=== PATIENT | female | born 1940 ===

== ENCOUNTER 2017-06-09 11:22 | Observation (INO) | payer MEDICARE, MEDICAID ==
--- NOTE | 2017-06-09 11:56 | C.PDOC ---
History Of Present Illness 77-year-old female, PMHx includes Hypertension and Diabetes, presents to the emergency department accompanied by daughter (acting as historian), with complaints of a syncopal episode in bathroom at home, prior to arrival. Patient is currently complaining of mild nausea. Denies injuries, chest pain, shortness of breath, vomiting, change in mentation, or any other associated symptoms. Time Seen by Provider: 06/09/17 11:50 Chief Complaint (Nursing): Syncope History Per: Patient History/Exam Limitations: no limitations Onset/Duration Of Symptoms: Gradual Current Symptoms Are (Timing): Still Present Past Medical History Reviewed: Historical Data, Nursing Documentation, Vital Signs Vital Signs: Last Vital Signs Temp 98.8 F 06/09/17 11:31 Pulse 83 06/09/17 11:31 Resp 18 06/09/17 11:31 BP 103/59 L 06/09/17 11:31 Pulse Ox 97 06/09/17 14:16 - Medical History PMH: HTN Family History: States: Unknown Family Hx - Social History Hx Alcohol Use: No Hx Substance Use: No - Immunization History Hx Tetanus Toxoid Vaccination: No Hx Influenza Vaccination: No Hx Pneumococcal Vaccination: No Review Of Systems Except As Marked, All Systems Reviewed And Found Negative. Constitutional: Negative for: Fever, Chills Cardiovascular: Positive for: Other (Syncope). Negative for: Chest Pain, Palpitations Respiratory: Negative for: Cough, Shortness of Breath Gastrointestinal: Positive for: Nausea. Negative for: Vomiting Neurological: Negative for: Weakness, Numbness, Headache Psych: Negative for: Suicidal ideation Physical Exam - Physical Exam Appears: Non-toxic, No Acute Distress Skin: Normal Color, Warm, Dry Head: Atraumatic, Normacephalic Eye(s): bilateral: Normal Inspection, PERRL Nose: Normal Oral Mucosa: Moist Lips: Normal Appearing Neck: Normal ROM, Supple Chest: Symmetrical Cardiovascular: Rhythm Regular, No Murmur Respiratory: Normal Breath Sounds, No Accessory Muscle Use, No Rales, No Rhonchi , No Wheezing, Other (Equal breath sounds bilaterally) Gastrointestinal/Abdominal: Soft, No Tenderness Extremity: Normal ROM, No Deformity Neurological/Psych: Oriented x3, Normal Speech, Other (No focal deficit) ED Course And Treatment - Laboratory Results Result Diagrams: 06/09/17 12:36 06/09/17 12:36 ECG: Interpreted By Me, Viewed By Me ECG Rhythm: Sinus Rhythm ECG Interpretation: No Acute Changes Rate From EC O2 Sat by Pulse Oximetry: 97 (RA) Pulse Ox Interpretation: Normal - CT Scan/US CT Head Other Rad Studies (CT/US): Read By Radiologist, Radiology Report Reviewed CT/US Interpretation: Accession No. : [id number]. Patient Name / ID : CARLOTTA GOMES / [id number]. Exam Date : 06/09/2017 12:55:04 ( Approved ). Study Comment : Sex / Age : F / [id number]. Creator : Iam Wheat MD. Dictator : Iam Wheat MD. Home Care Music Therapist : Top Frame Maker : Iam Wheat MD. Approver2 : Report Date : 06/09/2017 13:03:16. My Comment : . PROCEDURE: CT HEAD WITHOUT CONTRAST. HISTORY: dizziness. COMPARISON: None available. TECHNIQUE: Axial computed tomography images were obtained through the head/brain without intravenous contrast. Radiation dose: Total exam DLP = 709 mGy-cm. This CT exam was performed using one or more of the following dose reduction techniques: Automated exposure control, adjustment of the mA and/or kV according to patient size, and/or use of iterative reconstruction technique. FINDINGS: HEMORRHAGE: No intracranial hemorrhage. BRAIN: No mass effect or edema. Scattered focal lucencies in the subcortical and periventricular white matter suggestive for chronic microvascular ischemic change most prominent in the bifrontal regions. . Mild bifrontal extra-axial prominence. VENTRICLES: Unremarkable. No hydrocephalus. CALVARIUM: Unremarkable. PARANASAL SINUSES: Moderate mucosal thickening and opacification of the bilateral maxillary sinuses, sphenoid sinus, and ethmoid air cells. MASTOID AIR CELLS: Unremarkable as visualized. No inflammatory changes. OTHER FINDINGS : None. IMPRESSION: Extensive scattered focal lucencies in the subcortical and periventricular white matter with a somewhat bifrontal predominance which may represent moderate to severe chronic microvascular ischemic change. Additional etiologies not entirely excluded. If symptoms persists, correlation with MRI may be helpful. Mild bifrontal extra-axial prominence. Clinical correlation. Sinus mucosal disease. Medical Decision Making Medical Decision Making: Plan: * CT Head * EKG * BNP, CMP, Trop I * CBC * Chest X-Ray * UA * Reassess and Disposition Reassess Patient will be admitted to hospitalist Travis Brewer, with ICU consult Zahira Brewer. Disposition Discussed With DrGlo: Yrn Loyola Counseled Patient/Family Regarding: Studies Performed, Diagnosis - Disposition Disposition: HOSPITALIZED Disposition Time: 13:46 Condition: FAIR - Clinical Impression Clinical Impression: Syncope, UTI (urinary tract infection), Hyponatremia - Scribe Statement The provider has reviewed the documentation as recorded by the Luiz Toure All medical record entries made by the Lawsonibcarlos enrique were at my direction and personally dictated by me. I have reviewed the chart and agree that the record accurately reflects my personal performance of the history, physical exam, medical decision making, and the department course for this patient. I have also personally directed, reviewed, and agree with the discharge instructions and disposition.
[2017-06-09 12:42] LABS: BASO % 0.5 % (0.0-2.0); EOS % 0.1 % (0.0-4.0); HEMOGLOBIN 13.7 g/dL (11.0-16.0); LYMPH # 1.3 K/uL (1.0-4.3); LYMPH % 18.9 % (20.0-40.0); MEAN CELL VOLUME 94.6 fL (81.0-99.0); MEAN CORPUSCULAR HEMOGLOBIN 31.2 pg (27.0-31.0); MEAN CORPUSCULAR HGB CONC 32.9 g/dL (33.0-37.0); MEAN PLATELET VOLUME 8.6 fL (7.2-11.7); MONO # 0.5 K/uL (0.0-0.8); MONO % 7.1 % (0.0-10.0); NEUT # 4.9 K/uL (1.8-7.0); NEUT % 73.4 % (50.0-75.0); NRBC % 0.1 % (0.0-2.0); RBC 4.39 Mil/uL (3.80-5.20); RED CELL DISTRIBUTION WIDTH 14.8 % (11.5-14.5); WHITE BLOOD COUNT 6.7 K/uL (4.8-10.8)
[2017-06-09 12:49] LABS: SQUAMOUS EPITHIAL 1 /hpf (0-5); URINE BILIRUBIN NEGATIVE (NEGATIVE); URINE BLOOD NEGATIVE (NEGATIVE); URINE CLARITY Hazy (Clear); URINE COLOR Yellow (YELLOW); URINE GLUCOSE (UA) NORMAL (Normal); URINE LEUKOCYTE ESTERASE 1+ Leu/uL (Negative); URINE NITRATE NEGATIVE (NEGATIVE); URINE PROTEIN 2+ mg/dL (NEGATIVE); URINE UROBILINOGEN NORMAL mg/dL (0.2-1.0)
[2017-06-09 12:54] LABS: ALB/GLOB RATIO 1.1 (1.0-2.1); ALBUMIN 3.7 g/dL (3.5-5.0); ALT/SGPT 35 U/L (9-52); AST/SGOT 35 U/L (14-36); BLOOD UREA NITROGEN 15 mg/dL (7-17); CALCIUM 8.9 mg/dl (8.6-10.4); GFR AFRICAN-AMERICAN > 60; GFR NON-AFRICAN AMERICAN > 60
--- NOTE | 2017-06-09 13:04 | CT ---
PROCEDURE: CT HEAD WITHOUT CONTRAST. HISTORY: dizziness COMPARISON: None available. TECHNIQUE: Axial computed tomography images were obtained through the head/brain without intravenous contrast. Radiation dose: Total exam DLP = 709 mGy-cm. This CT exam was performed using one or more of the following dose reduction techniques: Automated exposure control, adjustment of the mA and/or kV according to patient size, and/or use of iterative reconstruction technique. FINDINGS: HEMORRHAGE: No intracranial hemorrhage. BRAIN: No mass effect or edema. Scattered focal lucencies in the subcortical and periventricular white matter suggestive for chronic microvascular ischemic change most prominent in the bifrontal regions. . Mild bifrontal extra-axial prominence. VENTRICLES: Unremarkable. No hydrocephalus. CALVARIUM: Unremarkable. PARANASAL SINUSES: Moderate mucosal thickening and opacification of the bilateral maxillary sinuses, sphenoid sinus, and ethmoid air cells. MASTOID AIR CELLS: Unremarkable as visualized. No inflammatory changes. OTHER FINDINGS: None. IMPRESSION: Extensive scattered focal lucencies in the subcortical and periventricular white matter with a somewhat bifrontal predominance which may represent moderate to severe chronic microvascular ischemic change. Additional etiologies not entirely excluded. If symptoms persists, correlation with MRI may be helpful. Mild bifrontal extra-axial prominence. Clinical correlation. Sinus mucosal disease.
[2017-06-09] MEDS ORDERED: Sodium Chloride 0.9% 1,000 ML IV ONE (13:36)
[2017-06-09] MEDS ORDERED: Tmp-Smz 800 mg-160 mg DS Tab PO STA (13:39)
--- NOTE | 2017-06-09 13:55 | RAD ---
Chest x-ray single frontal view History: Chest pain. Comparison: 06/09/2017 Findings: Mild venous congestion. Patchy increased markings at the left lung base which may represent infiltrate and or atelectasis. Question trace left pleural effusion. Tortuous aorta. Mild cardiomegaly. Degenerative changes in the spine and shoulders. Impression: Mild venous congestion. Patchy increased markings at the left lung base which may represent infiltrate and or atelectasis. Question trace left pleural effusion. Tortuous aorta. Mild cardiomegaly.
[2017-06-09] MEDS ORDERED: Tmp-Smz 800 mg-160 mg DS Tab ONE (14:41)
--- NOTE | 2017-06-09 19:27 | CP.PCM.HP ---
History of Present Illness - History of Present Illness History of Present Illness: 77 years old female with PMHx significant for HTN, Type II DM and Hypothyroidism brought to Hospital after an episode of Syncope. Patient denies, headache, chest pain, shortness of breath or abdominal pain. Present on Admission - Present on Admission Any Indicators Present on Admission: No Past Patient History - Past Social History Smoking Status: Never Smoked - CARDIAC Hx Hypertension: Yes - ENDOCRINE/METABOLIC Hx Diabetes Mellitus Type 2: Yes - PSYCHIATRIC Hx Substance Use: No - SURGICAL HISTORY Hx Eye Surgery: Yes (cataracts - R eye) - ANESTHESIA Hx Anesthesia: No Meds Allergies/Adverse Reactions: Allergies Allergy/AdvReac Type Severity Reaction Status Date / Time No Known Allergies Allergy Unverified 06/09/17 11:51 Physical Exam - Constitutional Appears: Well, No Acute Distress - Head Exam Head Exam: ATRAUMATIC, NORMAL INSPECTION, NORMOCEPHALIC - Eye Exam Eye Exam: EOMI, Normal appearance, PERRL - ENT Exam ENT Exam: Mucous Membranes Moist, Normal Exam - Neck Exam Neck exam: Positive for: Full Rom, Normal Inspection - Respiratory Exam Respiratory Exam: Clear to Auscultation Bilateral, NORMAL BREATHING PATTERN - Cardiovascular Exam Cardiovascular Exam: REGULAR RHYTHM, +S1, +S2 - GI/Abdominal Exam GI & Abdominal Exam: Normal Bowel Sounds, Soft - Extremities Exam Extremities exam: Positive for: full ROM, normal inspection - Back Exam Back exam: FULL ROM, NORMAL INSPECTION - Neurological Exam Neurological exam: Alert, CN II-XII Intact, Normal Gait, Oriented x3, Reflexes Normal - Psychiatric Exam Psychiatric exam: Normal Affect, Normal Mood - Skin Skin Exam: Intact, Normal Color Results - Vital Signs Recent Vital Signs: Last Vital Signs Temp 98.8 F 06/09/17 11:31 Pulse 73 06/09/17 17:25 Resp 14 06/09/17 17:25 BP 116/65 06/09/17 17:25 Pulse Ox 96 06/09/17 17:25 - Labs Result Diagrams: 06/09/17 12:36 06/09/17 12:36 Labs: Laboratory Results - last 24 hr 06/09/17 06/09/17 06/09/17 11:55 12:36 12:36 WBC 6.7 RBC 4.39 Hgb 13.7 Hct 41.5 MCV 94.6 MCH 31.2 H MCHC 32.9 L RDW 14.8 H Plt Count 429 H MPV 8.6 Neut % (Auto) 73.4 Lymph % (Auto) 18.9 L [place] % (Auto) 7.1 Eos % (Auto) 0.1 Baso % (Auto) 0.5 Neut # 4.9 Lymph # 1.3 [place] # 0.5 Eos # 0.0 Baso # 0.0 Sodium Potassium Chloride Carbon Dioxide Anion Gap BUN Creatinine Est GFR ( Amer) Est GFR (Non-Af Amer) POC Glucose (mg/dL) 110 Random Glucose Calcium Total Bilirubin AST ALT Alkaline Phosphatase Troponin I NT-Pro-B Natriuret Pep Total Protein Albumin Globulin Albumin/Globulin Ratio Urine Color Yellow Urine Clarity Hazy Urine pH 7.0 Ur Specific [place] 1.020 Urine Protein 2+ H Urine Glucose (UA) Normal Urine Ketones Negative Urine Blood Negative Urine Nitrate Negative Urine Bilirubin Negative Urine Urobilinogen Normal Ur Leukocyte Esterase 1+ H Urine WBC (Auto) 22 H Urine RBC (Auto) 2 Ur Squamous Epith Cells 1 Hyaline Casts 3-5 H 06/09/17 12:36 WBC RBC Hgb Hct MCV MCH MCHC RDW Plt Count MPV Neut % (Auto) Lymph % (Auto) [place] % (Auto) Eos % (Auto) Baso % (Auto) Neut # Lymph # [place] # Eos # Baso # Sodium 128 L Potassium 4.4 Chloride 97 L Carbon Dioxide 24 Anion Gap 12 BUN 15 Creatinine 0.7 Est GFR ( Amer) > 60 Est GFR (Non-Af Amer) > 60 POC Glucose (mg/dL) Random Glucose 132 H Calcium 8.9 Total Bilirubin 0.4 AST 35 ALT 35 Alkaline Phosphatase 30 L Troponin I < 0.0120 NT-Pro-B Natriuret Pep 99.0 Total Protein 7.1 Albumin 3.7 Globulin 3.4 Albumin/Globulin Ratio 1.1 Urine Color Urine Clarity Urine pH Ur Specific [place] Urine Protein Urine Glucose (UA) Urine Ketones Urine Blood Urine Nitrate Urine Bilirubin Urine Urobilinogen Ur Leukocyte Esterase Urine WBC (Auto) Urine RBC (Auto) Ur Squamous Epith Cells Hyaline Casts Assessment & Plan (1) Syncope Assessment and Plan: Continue IV Fluids. REpeat CXR in AM. Status: Acute Priority: High (2) UTI (urinary tract infection) Assessment and Plan: Blood Cultures. Repeat CBC Diff in AM. Rocephin IV QD. Status: Acute (3) Hyponatremia Assessment and Plan: Repeat BMP in AM. Nephrology evaluation. Status: Acute
[2017-06-10] MEDS: (Novolog) Insulin Aspart, Recombinant 100 u/ml 10 ml vial SC SCH ×4 (07:21→22:44)
[2017-06-10] MEDS ORDERED: Pneumococcal 23-Valent Vaccine IM ONE (10:00)
--- NOTE | 2017-06-10 10:10 | RAD ---
Chest x-ray two views History: Cough. Comparison: 06/02/2017 Findings: Diffuse increased interstitial lung markings. Patchy bibasilar airspace opacities. Small left pleural effusion. Tortuous ectatic aorta. Degenerative changes in the spine and shoulders. Impression: Diffuse increased interstitial lung markings. Patchy bibasilar airspace opacities. Small left pleural effusion.
[2017-06-10] MEDS: Azithromycin 500 MG in Sodium Chloride 0.9% 250 ML IVPB SCH (13:00)
--- NOTE | 2017-06-10 13:11 | CT ---
CT chest History: Abnormal chest x-ray. Comparison: X-ray dated 06/10/2017 Technique: Multiple contiguous axial images were performed through the chest without the use of intravenous contrast. Subsequently, sagittal and coronal reformatted images were obtained. This CT exam was performed using one or more of the following dose reduction techniques: Automated exposure control, adjustment of the mA and/or kV according to patient size, and/or use of iterative reconstruction technique. Findings: Right lung: Mild right basilar atelectasis. Left lung: Curvilinear focal consolidative changes at the lateral aspect of the left lower lobe on series 3, image 70 suggestive for atelectasis and or subtle infiltrate. Mild diffuse bilateral increased interstitial markings. No gross pleural effusion. Trachea thru central airways are patent. No significant axillary adenopathy. Thyroid appears grossly preserved. No significant prevascular or paratracheal lymph nodes. No gross hilar adenopathy. Coronary calcifications noted. Mild prominence of the ascending thoracic aorta measuring 3.1 centimeters. Calcification within the aortic knob. Prominent liver. Small hiatal hernia. Degenerative changes in the spine. Impression: Curvilinear consolidative changes at the left lung base which may represent atelectasis and/or minimal infiltrate. Clinical correlation. Mild diffuse increased interstitial lung markings. Additional findings as above.
--- NOTE | 2017-06-10 14:20 | CP.PCM.CON ---
History of Present Illness - History of Present Illness History of Present Illness: I was asked to see patient by Dr Loyola. Patient is a 77 year old female with PMH HTN, hypercholesterolemia and DM who presents with syncope. The patient felt lighheaded ysterday. She denies chest pain or palpitations. She denies dyspnea on exertion Review of Systems - Constitutional Constitutional: absent: As Per HPI, Anorexia, Chills, Daytime Sleepiness, Excessive Sweating, Fatigue, Fever, Frequent Falls, Headache, Increased Appetite , Lethargy, Malaise, Night Sweats, Snoring, Sleep Apnea, Weight Gain, Weight Loss, Weakness, Other - EENT Eyes: absent: As Per HPI, Blind Spots, Blurred Vision, Change in Vision, Decreased Night Vision, Diplopia, Discharge, Dry Eye, Exophthalmos, Floaters, Irritation, Itchy Eyes, Loss of Peripheral Vision, Pain, Photophobia, Requires Corrective Lenses, Sees Flashes, Spots in Vision, Tunnel Vision, Other Visual Disturbances, Loss of Vision, Other Ears: absent: As Per HPI, Decreased Hearing, Ear Discharge, Ear Pain, Tinnitus, Abnormal Hearing, Disequilibrium, Dizziness, Other Nose/Mouth/Throat: absent: As Per HPI, Epistaxis, Nasal Congestion, Nasal Discharge, Nasal Obstruction, Nasal Trauma, Nose Pain, Post Nasal Drip, Sinus Pain, Sinus Pressure, Bleeding Gums, Change in Voice, Dental Pain, Dry Mouth, Dysphagia, Halitosis, Hoarsness, Lip Swelling, Mouth Lesions, Mouth Pain, Odynophagia, Sore Throat, Throat Swelling, Tongue Swelling, Facial Pain, Neck Pain, Neck Mass, Other - Breasts Breasts: absent: As Per HPI, Change in Shape, Mass, Pain, Nipple Discharge, Nipple Inversion, Skin Changes, Swelling, Other - Cardiovascular Cardiovascular: Syncope - Respiratory Respiratory: absent: As Per HPI, Cough, Dyspnea, Hemoptysis, Dyspnea on Exertion , Wheezing, Snoring, Stridor, Pain on Inspiration, Chest Congestion, Excessive Mucous Production, Change in Mucous Color, Pain with Coughing, Other - Gastrointestinal Gastrointestinal: absent: As Per HPI, Abdominal Pain, Belching, Bloating, Change in Bowel Habits, Change in Stool Character, Coffee Ground Emesis, Constipation, Cramping, Diarrhea, Dyspepsia, Dysphagia, Early Satiety, Excessive Flatus, Fecal Incontinence, Heartburn, Hematemesis, Hematochezia, Loose Stools, Melena, Nausea, Odynophagia, Temesmus, Vomiting, Other - Genitourinary Genitourinary: absent: As Per HPI, Change in Urinary Stream, Difficulty Urinating, Dysuria, Flank Pain, Hematuria, Pyuria, Nocturia, Urinary Incontinence, Urinary Frequency, Urinary Hesitance, Urinary Urgency, Voiding Freq/Small Amts, Freq UTI, Hx Renal/Bladder Calculi, Hx /Renal Surgery, Bladder Distension, Other - Musculoskeletal Musculoskeletal: absent: As Per HPI, Abnormal Gait, Arthralgias, Atrophy, Back Pain, Deformity, Joint Swelling, Limited Range of Motion, Loss of Height, Muscle Cramps, Muscle Weakness, Myalgias, Neck Pain, Numbness, Radiating Pain into Limb, Stiffness, Tingling, Other - Integumentary Integumentary: absent: As Per HPI, Acne, Alopecia, Bleeding Lesions, Change in Hair, Change in Nails, Change in Pigmentation, Changing Lesions, Dry Skin, Erythema, Furuncle, Hirsutism, Lesions, New Lesions, Non-Healing Lesions, Photosensitivity, Pruritus, Rash, Skin Pain, Skin Ulcer, Sores, Striae, Swelling , Unusual Bruising, Wounds, Jaundice, Other - Neurological Neurological: absent: As Per HPI, Abnormal Gait, Abnormal Hearing, Abnormal Movements, Abnormal Speech, Behavioral Changes, Burning Sensations, Confusion, Convulsions, Disequilibrium, Dizziness, Numbness, Focal Weakness, Frequent Falls , Headaches, Lack of Coordination, Loss of Vision, Memory Loss, Paresthesias, Radicular Pain, Restless Legs, Sensory Deficit, Syncope, Tingling, Tremor, Vertigo, Weakness, Other Visual Disturbances, Other - Psychiatric Psychiatric: absent: As Per HPI, Abnormal Sleep Pattern, Anhedonia, Anxiety, Auditory Hallucinations, Behavioral Changes, Change in Appetite, Change in Libido, Confusion, Depression, Difficulty Concentrating, Hallucinations, Homicidal Ideation, Hopelessness, Irritability, Memory Loss, Mood Swings, Panic Attacks, Paranoia, Suicidal Ideation, Visual Hallucinations, Tactile Hallucinations, Other - Endocrine Endocrine: absent: As Per HPI, Change in Body Appearance, Change in Libido, Cold Intolorance, Deepening of Voice, Excessive Sweating, Fatigue, Flushing, Heat Intolorance, Increase in Ring/Shoe/Hat Size, Palpitations, Polydipsia, Polyphagia, Polyuria, Other - Hematologic/Lymphatic Hematologic: absent: As Per HPI, Easy Bleeding, Easy Bruising, Lymphadenopathy, Other Past Patient History - Past Medical History & Family History Past Medical History?: Yes - Past Social History Smoking Status: Never Smoked - CARDIAC Hx Cardiac Disorders: Yes Hx Hypertension: Yes - PULMONARY Hx Respiratory Disorders: No - NEUROLOGICAL Hx Neurological Disorder: No - HEENT Hx HEENT Problems: No - RENAL Hx Chronic Kidney Disease: No - ENDOCRINE/METABOLIC Hx Endocrine Disorders: Yes Hx Diabetes Mellitus Type 2: Yes - HEMATOLOGICAL/ONCOLOGICAL Hx Blood Disorders: No - INTEGUMENTARY Hx Dermatological Problems: No - MUSCULOSKELETAL/RHEUMATOLOGICAL Hx Musculoskeletal Disorders: No Hx Falls: Yes - GASTROINTESTINAL Hx Gastrointestinal Disorders: No - GENITOURINARY/GYNECOLOGICAL Hx Genitourinary Disorders: No - PSYCHIATRIC Hx Psychophysiologic Disorder: No Hx Substance Use: No - SURGICAL HISTORY Hx Surgeries: Yes Hx Eye Surgery: Yes (cataracts - R eye) - ANESTHESIA Hx Anesthesia: No Meds Allergies/Adverse Reactions: Allergies Allergy/AdvReac Type Severity Reaction Status Date / Time No Known Allergies Allergy Unverified 06/09/17 11:51 - Medications Medications: Current Medications Ceftriaxone Sodium 1 gm/ (Sodium Chloride) 100 mls @ 100 mls/hr IVPB DAILY [facility] Last Admin: 06/10/17 10:11 Dose: 100 mls/hr Azithromycin 500 mg/ Sodium (Chloride) 250 mls @ 250 mls/hr IVPB DAILY [facility] Last Admin: 06/10/17 13:00 Dose: 250 mls/hr Insulin Aspart (Novolog) 0 unit SC ACHS [facility] PRN Reason: Protocol Last Admin: 06/10/17 11:52 Dose: Not Given Pneumococcal Polyvalent Vaccine (Pneumovax 23 Vaccine) 0.5 ml IM .ONCE ONE Stop: 06/11/17 10:01 Physical Exam - Constitutional Appears: Non-toxic - Head Exam Head Exam: NORMAL INSPECTION - Eye Exam Eye Exam: Normal appearance - ENT Exam ENT Exam: Mucous Membranes Moist - Neck Exam Neck exam: Positive for: Normal Inspection - Respiratory Exam Respiratory Exam: NORMAL BREATHING PATTERN - Cardiovascular Exam Cardiovascular Exam: REGULAR RHYTHM - GI/Abdominal Exam GI & Abdominal Exam: Normal Bowel Sounds - Rectal Exam Rectal Exam: Deferred - Extremities Exam Extremities exam: Negative for: pedal edema - Back Exam Back exam: NORMAL INSPECTION - Neurological Exam Neurological exam: Alert, Oriented x3 - Psychiatric Exam Psychiatric exam: Normal Affect - Skin Skin Exam: Normal Color Results - Vital Signs Recent Vital Signs: Last Vital Signs Temp 97.9 F 06/10/17 09:09 Pulse 71 06/10/17 10:00 Resp 20 06/10/17 09:09 BP 113/70 06/10/17 09:09 Pulse Ox 95 06/10/17 09:09 - Labs Result Diagrams: 06/09/17 12:36 06/09/17 12:36 Labs: Laboratory Results - last 24 hr 06/10/17 06/10/17 06:47 11:49 POC Glucose (mg/dL) 93 91 - EKG Data EKG Interpreted by: Myself EKG shows normal: Sinus rhythm Assessment & Plan (1) Syncope Assessment and Plan: unclear etiology. recommend continued current management. No evidence of ischemia thus far. will perform echocardiogram in the am. Status: Acute Priority: High
--- NOTE | 2017-06-10 15:49 | CP.PCM.PN ---
Subjective - Date & Time of Evaluation Date of Evaluation: 06/10/17 Time of Evaluation: 15:46 - Subjective Subjective: Patient denies cough or urinary symptoms. Objective - Vital Signs/Intake and Output Vital Signs (last 24 hours): Temp Pulse Resp BP Pulse Ox 97.9 F 71 20 113/70 95 06/10/17 09:09 06/10/17 10:00 06/10/17 09:09 06/10/17 09:09 06/10/17 09:09 Intake and Output: 06/10/17 06/10/17 06:59 18:59 Intake Total 300 Balance 300 - Medications Medications: Current Medications Ceftriaxone Sodium 1 gm/ (Sodium Chloride) 100 mls @ 100 mls/hr IVPB DAILY [facility] Last Admin: 06/10/17 10:11 Dose: 100 mls/hr Azithromycin 500 mg/ Sodium (Chloride) 250 mls @ 250 mls/hr IVPB DAILY [facility] Last Admin: 06/10/17 13:00 Dose: 250 mls/hr Insulin Aspart (Novolog) 0 unit SC ACHS [facility] PRN Reason: Protocol Last Admin: 06/10/17 11:52 Dose: Not Given Levothyroxine Sodium (Synthroid) 50 mcg PO DAILY@0630 [facility] Pneumococcal Polyvalent Vaccine (Pneumovax 23 Vaccine) 0.5 ml IM .ONCE ONE Stop: 06/11/17 10:01 Rosuvastatin Calcium (Crestor) 5 mg PO [facility] - Labs Labs: 06/09/17 12:36 06/09/17 12:36 - Constitutional Appears: Well, Non-toxic - Head Exam Head Exam: ATRAUMATIC, NORMAL INSPECTION, NORMOCEPHALIC - Neck Exam Neck Exam: Full ROM, Normal Inspection - Respiratory Exam Respiratory Exam: Clear to Ausculation Bilateral, NORMAL BREATHING PATTERN - Cardiovascular Exam Cardiovascular Exam: REGULAR RHYTHM, +S1, +S2 - GI/Abdominal Exam GI & Abdominal Exam: Soft, Normal Bowel Sounds - Extremities Exam Extremities Exam: Full ROM, Normal Capillary Refill, Normal Inspection - Back Exam Back Exam: Full ROM, NORMAL INSPECTION - Neurological Exam Neurological Exam: Alert, Awake, CN II-XII Intact, Normal Gait, Oriented x3 - Psychiatric Exam Psychiatric exam: Normal Affect, Normal Mood Assessment and Plan (1) Pneumonia Assessment & Plan: Continue Rocephin + Zithromax IV. Status: Acute (2) Syncope Assessment & Plan: Cardiology evaluation. 2D Echo in AM. Status: Acute (3) Diabetes mellitus Assessment & Plan: Accuchek with Regular Insulin Coverage Medium dose as per protocol ACHS. . Status: Acute (4) Hyponatremia Status: Acute (5) Hypothyroidism Assessment & Plan: Levothyroxine 50 mcg. Status: Acute (6) Hypertension Assessment & Plan: Start Enalapril 10 mg. Status: Acute (7) UTI (urinary tract infection) Status: Acute
[2017-06-11] MEDS ORDERED: Levothyroxine 50 MCG TAB PO SCH (06:30)
[2017-06-11] MEDS: (Novolog) Insulin Aspart, Recombinant 100 u/ml 10 ml vial SC SCH ×2 (08:00→11:30)
--- NOTE | 2017-06-11 08:19 | CP.PCM.PN ---
Subjective - Date & Time of Evaluation Date of Evaluation: 06/11/17 Time of Evaluation: 08:15 - Subjective Subjective: patient has no new complaints Objective - Vital Signs/Intake and Output Vital Signs (last 24 hours): Temp Pulse Resp BP Pulse Ox 98.6 F 60 20 108/67 96 06/11/17 00:36 06/11/17 01:00 06/11/17 00:36 06/11/17 00:36 06/11/17 00:36 - Medications Medications: Current Medications Enalapril Maleate (Vasotec) 10 mg PO DAILY COUNT INCLUDES THE [facility] Enoxaparin Sodium (Lovenox) 30 mg SC DAILY COUNT INCLUDES THE [facility] Ceftriaxone Sodium 1 gm/ (Sodium Chloride) 100 mls @ 100 mls/hr IVPB DAILY COUNT INCLUDES THE [facility] Last Admin: 06/10/17 10:11 Dose: 100 mls/hr Azithromycin 500 mg/ Sodium (Chloride) 250 mls @ 250 mls/hr IVPB DAILY COUNT INCLUDES THE [facility] Last Admin: 06/10/17 13:00 Dose: 250 mls/hr Insulin Aspart (Novolog) 0 unit SC [facility] COUNT INCLUDES THE [facility] PRN Reason: Protocol Last Admin: 06/11/17 08:00 Dose: Not Given Levothyroxine Sodium (Synthroid) 50 mcg PO DAILY@0630 COUNT INCLUDES THE [facility] Pneumococcal Polyvalent Vaccine (Pneumovax 23 Vaccine) 0.5 ml IM .ONCE ONE Stop: 06/11/17 10:01 Rosuvastatin Calcium (Crestor) 5 mg PO [facility] Last Admin: 06/10/17 22:48 Dose: 5 mg - Labs Labs: 06/09/17 12:36 06/09/17 12:36 - Constitutional Appears: Non-toxic - Head Exam Head Exam: NORMAL INSPECTION - Eye Exam Eye Exam: Normal appearance - ENT Exam ENT Exam: Mucous Membranes Moist - Neck Exam Neck Exam: Full ROM - Respiratory Exam Respiratory Exam: NORMAL BREATHING PATTERN - Cardiovascular Exam Cardiovascular Exam: REGULAR RHYTHM - GI/Abdominal Exam GI & Abdominal Exam: Normal Bowel Sounds - Rectal Exam Rectal Exam: Deferred - Extremities Exam Extremities Exam: absent: Pedal Edema - Back Exam Back Exam: NORMAL INSPECTION - Neurological Exam Neurological Exam: Alert - Psychiatric Exam Psychiatric exam: Normal Affect - Skin Skin Exam: Normal Color Assessment and Plan (1) Syncope Assessment & Plan: no curretn symptoms. echocardiogram Status: Acute
[2017-06-11] MEDS: Azithromycin 500 MG in Sodium Chloride 0.9% 250 ML IVPB SCH (09:05)
[2017-06-11] MEDS ORDERED: Pneumococcal 23-Valent Vaccine IM ONE (10:00)
[2017-06-11] MEDS: Enoxaparin 30 mg Syringe SC SCH (10:50)
--- NOTE | 2017-06-11 12:56 | CARD ---
APPROVED REPORT EXAM: Two-dimensional and M-mode echocardiogram with Doppler and color Doppler. Other Information Quality : GoodRhythm : INDICATION Syncope RISK FACTORS Hypertension Diabetes 2D DIMENSIONS IVSd1.0 (0.7-1.1cm)LVDd3.4 (3.9-5.9cm) PWd1.1 (0.7-1.1cm)LVDs1.4 (2.5-4.0cm) FS (%) 60.6 %LVEF (%)90.5 (>50%) M-Mode DIMENSIONS Left Atrium (MM)2.90 (2.5-4.0cm)Aortic Root2.79 (2.2-3.7cm) Aortic Cusp Exc.2.01 (1.5-2.0cm) Aortic Valve AI P 1/2 [id number] Mitral Valve MV E Dfqfpsxw75.5cm/sMV A Tbrsqswa98.6cm/sE/A ratio0.6 TDI E/Lateral E'0.0E/Medial E'0.0 Tricuspid Valve TR Peak Dorsrwvg073xt/sTR Peak Gr.[id number] LEFT VENTRICLE The left ventricle is normal size. There is normal left ventricular wall thickness. The left ventricular function is normal. The left ventricular ejection fraction is within the normal range. There is normal LV segmental wall motion. Transmitral Doppler flow pattern is Grade I-abnormal relaxation pattern. Cannot rule out thrombus in left Ventricle. RIGHT VENTRICLE The right ventricle is normal size. There is normal right ventricular wall thickness. The right ventricular systolic function is normal. ATRIA The left atrium size is normal. The right atrium size is normal. AORTIC VALVE The aortic valve is mildly thickened. There is mild aortic regurgitation. MITRAL VALVE The mitral valve is normal in structure. There is no mitral valve stenosis. There is no mitral valve regurgitation noted. TRICUSPID VALVE There is mild tricuspid regurgitation. There is mild to moderate pulmonary hypertension. GREAT VESSELS The aortic root is normal in size. PERICARDIAL EFFUSION There is a small circumferential pericardial effusion. <Conclusion> The left ventricle is normal size. There is normal left ventricular wall thickness. The left ventricular function is normal. The left ventricular ejection fraction is within the normal range. There is normal LV segmental wall motion. Transmitral Doppler flow pattern is Grade I-abnormal relaxation pattern. Cannot rule out thrombus in left Ventricle. There is mild aortic regurgitation. There is mild tricuspid regurgitation. There is mild to moderate pulmonary hypertension.
[2017-06-11] MEDS ORDERED: Influenza Vaccine 60 mcg/0.5 mL SYR (4YR UP) IM ONE (14:00)
[2017-06-11 14:05] LABS: BASO % 0.2 % (0.0-2.0); EOS # 0.1 K/uL (0.0-0.7); EOS % 0.7 % (0.0-4.0); HEMOGLOBIN 14.3 g/dL (11.0-16.0); LYMPH # 2.6 K/uL (1.0-4.3); LYMPH % 32.5 % (20.0-40.0); MEAN CELL VOLUME 94.7 fL (81.0-99.0); MEAN CORPUSCULAR HEMOGLOBIN 30.5 pg (27.0-31.0); MEAN CORPUSCULAR HGB CONC 32.2 g/dL (33.0-37.0); MEAN PLATELET VOLUME 9.3 fL (7.2-11.7); MONO # 0.5 K/uL (0.0-0.8); MONO % 6.4 % (0.0-10.0); NEUT # 4.8 K/uL (1.8-7.0); NEUT % 60.2 % (50.0-75.0); RBC 4.69 Mil/uL (3.80-5.20); RED CELL DISTRIBUTION WIDTH 14.9 % (11.5-14.5)
[2017-06-11 14:26] LABS: ALB/GLOB RATIO 1.1 (1.0-2.1); ALBUMIN 3.8 g/dL (3.5-5.0); ALT/SGPT 38 U/L (9-52); AST/SGOT 48 U/L (14-36); BLOOD UREA NITROGEN 16 mg/dL (7-17); CALCIUM 8.7 mg/dl (8.6-10.4); GFR AFRICAN-AMERICAN > 60; GFR NON-AFRICAN AMERICAN > 60
--- NOTE | 2017-06-11 17:14 | CARD ---
APPROVED REPORT EKG Measurement Heart [id number] <Conclusion> Normal sinus rhythm Normal ECG
--- NOTE | 2017-06-11 19:37 | CP.PCM.DIS ---
Provider - Provider Date of Admission: 06/09/17 13:45 Attending physician: Yrn Loyola MD Time Spent in preparation of Discharge (in minutes): 30 Diagnosis - Discharge Diagnosis (1) Pneumonia Status: Inactive Priority: Low Comment: Continue Azithromycin PO (2) Syncope Status: Resolved Priority: Low Comment: Cleared by [employer] [facility]. F/U as outpatient. (3) Hyponatremia Status: Inactive Priority: Low Comment: F/U as Outpatient with [employer] [facility] Dent. Fluid restriction. (4) Diabetes mellitus Status: Acute (5) Hypothyroidism Status: Acute (6) Hypertension Status: Acute (7) UTI (urinary tract infection) Status: Acute Hospital Course - Lab Results Lab Results: Micro Results 06/09/17 20:30 Blood Blood Culture - Preliminary NO GROWTH AFTER 24 HOURS 06/09/17 21:00 Blood Blood Culture - Preliminary NO GROWTH AFTER 24 HOURS 06/09/17 14:56 Urine Urine Culture - Final No Growth (<1,000 CFU/ML) Most Recent Lab Values WBC 8.0 K/uL (4.8-10.8) 06/11/17 13:54 RBC 4.69 Mil/uL (3.80-5.20) 06/11/17 13:54 Hgb 14.3 g/dL (11.0-16.0) 06/11/17 13:54 Hct 44.4 % (34.0-47.0) 06/11/17 13:54 MCV 94.7 fL (81.0-99.0) 06/11/17 13:54 MCH 30.5 pg (27.0-31.0) 06/11/17 13:54 MCHC 32.2 g/dL (33.0-37.0) L 06/11/17 13:54 RDW 14.9 % (11.5-14.5) H 06/11/17 13:54 Plt Count 434 K/uL (130-400) H 06/11/17 13:54 MPV 9.3 fL (7.2-11.7) 06/11/17 13:54 Neut % (Auto) 60.2 % (50.0-75.0) 06/11/17 13:54 Lymph % (Auto) 32.5 % (20.0-40.0) 06/11/17 13:54 [place] % (Auto) 6.4 % (0.0-10.0) 06/11/17 13:54 Eos % (Auto) 0.7 % (0.0-4.0) 06/11/17 13:54 Baso % (Auto) 0.2 % (0.0-2.0) 06/11/17 13:54 Neut # 4.8 K/uL (1.8-7.0) 06/11/17 13:54 Lymph # 2.6 K/uL (1.0-4.3) 06/11/17 13:54 Merrick # 0.5 K/uL (0.0-0.8) 06/11/17 13:54 Eos # 0.1 K/uL (0.0-0.7) 06/11/17 13:54 Baso # 0.0 K/uL (0.0-0.2) 06/11/17 13:54 Sodium 130 mmol/L (132-148) L 06/11/17 13:54 Potassium 4.4 mmol/L (3.6-5.2) 06/11/17 13:54 Chloride 100 mmol/L (98-107) 06/11/17 13:54 Carbon Dioxide 25 mmol/L (22-30) 06/11/17 13:54 Anion Gap 10 (10-20) 06/11/17 13:54 BUN 16 mg/dL (7-17) 06/11/17 13:54 Creatinine 0.6 mg/dL (0.7-1.2) L 06/11/17 13:54 Est GFR ( Amer) > 60 06/11/17 13:54 Est GFR (Non-Af Amer) > 60 06/11/17 13:54 POC Glucose (mg/dL) 96 mg/dL (65-110) 06/11/17 16:20 Random Glucose 105 mg/dL (65-105) 06/11/17 13:54 Calcium 8.7 mg/dl (8.6-10.4) 06/11/17 13:54 Total Bilirubin 0.4 mg/dL (0.2-1.3) 06/11/17 13:54 AST 48 U/L (14-36) H D 06/11/17 13:54 ALT 38 U/L (9-52) 06/11/17 13:54 Alkaline Phosphatase 34 U/L (38-126) L 06/11/17 13:54 Troponin I < 0.0120 ng/mL (0.00-0.120) 06/09/17 12:36 NT-Pro-B Natriuret Pep 99.0 pg/mL (0-900) 06/09/17 12:36 Total Protein 7.4 g/dL (6.3-8.3) 06/11/17 13:54 Albumin 3.8 g/dL (3.5-5.0) 06/11/17 13:54 Globulin 3.6 gm/dL (2.2-3.9) 06/11/17 13:54 Albumin/Globulin Ratio 1.1 (1.0-2.1) 06/11/17 13:54 Urine Color Yellow (YELLOW) 06/09/17 12:36 Urine Clarity Hazy (Clear) 06/09/17 12:36 Urine pH 7.0 (5.0-8.0) 06/09/17 12:36 Ur Specific [place] 1.020 (1.003-1.030) 06/09/17 12:36 Urine Protein 2+ mg/dL (NEGATIVE) H 06/09/17 12:36 Urine Glucose (UA) Normal mg/dL (Normal) 06/09/17 12:36 Urine Ketones Negative mg/dL (NEGATIVE) 06/09/17 12:36 Urine Blood Negative (NEGATIVE) 06/09/17 12:36 Urine Nitrate Negative (NEGATIVE) 06/09/17 12:36 Urine Bilirubin Negative (NEGATIVE) 06/09/17 12:36 Urine Urobilinogen Normal mg/dL (0.2-1.0) 06/09/17 12:36 Ur Leukocyte Esterase 1+ Topher/uL (Negative) H 06/09/17 12:36 Urine WBC (Auto) 22 /hpf (0-5) H 06/09/17 12:36 Urine RBC (Auto) 2 /hpf (0-3) 06/09/17 12:36 Ur Squamous Epith Cells 1 /hpf (0-5) 06/09/17 12:36 Hyaline Casts 3-5 /lpf (0-2) H 06/09/17 12:36 - Hospital Course Hospital Course: 77 years old female admitted for Syncope evaluation. UA showed abnormalities pointing towards UTI. Patient started on Rocephin IV. CXR showed Interstitial Infiltrates. CT scan of the Chest showed possible Infiltrate. Azithromycin added to current regimen. Blood Cultures negative. [employer] [employer] cleared patient to discharge home. Patient will call [employer] [facility] Dent for follow up as outpatient. Discharge Exam - Head Exam Head Exam: NORMAL INSPECTION, NORMOCEPHALIC - Eye Exam Eye Exam: EOMI, Normal appearance Pupil Exam: PERRL - Respiratory Exam Respiratory Exam: Clear to PA & Lateral, NORMAL BREATHING PATTERN, UNREMARKABLE - Cardiovascular Exam Cardiovascular Exam: REGULAR RHYTHM, +S1, +S2 - GI/Abdominal Exam GI & Abdominal Exam: Normal Bowel Sounds, Unremarkable - Extremities Exam Extremities exam: full ROM - Neurological Exam Neurological exam: Alert, CN II-XII Intact, Normal Gait, Oriented x3 - Psychiatric Exam Psychiatric exam: Normal Affect, Normal Mood Discharge Plan - Follow Up Plan Condition: FAIR Disposition: HOME/ ROUTINE
[2017-06-11] MEDS ORDERED: Rosuvastatin Calcium 2.5 mg Tab PO SCH ×2 (22:00)
--- NOTE | 2017-06-11 22:53 | CARD ---
APPROVED REPORT EKG Measurement Heart [id number] <Conclusion> Normal sinus rhythm Normal ECG
[2017-06-11 23:12] LABS: BLOOD UREA NITROGEN 20 mg/dL (7-17); CALCIUM 8.8 mg/dl (8.6-10.4); GFR AFRICAN-AMERICAN > 60; GFR NON-AFRICAN AMERICAN > 60
[2017-06-12] MEDS ORDERED: Levothyroxine 50 MCG TAB PO SCH (06:30)
[2017-06-12] MEDS: (Novolog) Insulin Aspart, Recombinant 100 u/ml 10 ml vial SC SCH ×2 (07:30→12:08)
[2017-06-12 08:06] VITALS: RESP 20; TEMP 97.3
[2017-06-12 09:19] VITALS: BP 132/74
[2017-06-12] MEDS: Enoxaparin 30 mg Syringe SC SCH (09:22)
[2017-06-12 13:15] VITALS: PULSE 84; O2SAT 95
--- NOTE | 2017-06-12 15:50 | CP.PCM.CON ---
History of Present Illness - History of Present Illness History of Present Illness: REASON FOR CONSULT : HYPONATREMIA .. NA 128 --> 130 ALL EMR REVIEWED LABS REVIEWED .. PT SEEN AND EXAMINED AROUND 1.00 PM D/W DR ADKINS OVER THE PHONE .. PT WAS ADMITTED FOR SYNCOPE FOR UTI AND PNEUMONIA .. SERUM NA ON ADMISSION WAS 128 .. WENT UP TO 130 Past Patient History - Past Medical History & Family History Past Medical History?: Yes - Past Social History Smoking Status: Never Smoked - CARDIAC Hx Hypertension: Yes - PULMONARY Hx Respiratory Disorders: No - NEUROLOGICAL Hx Neurological Disorder: No - HEENT Hx HEENT Problems: No - RENAL Hx Chronic Kidney Disease: No - ENDOCRINE/METABOLIC Hx Endocrine Disorders: Yes Hx Diabetes Mellitus Type 2: Yes - HEMATOLOGICAL/ONCOLOGICAL Hx Blood Disorders: No - INTEGUMENTARY Hx Dermatological Problems: No - MUSCULOSKELETAL/RHEUMATOLOGICAL Hx Musculoskeletal Disorders: No Hx Falls: Yes - GASTROINTESTINAL Hx Gastrointestinal Disorders: No - GENITOURINARY/GYNECOLOGICAL Hx Genitourinary Disorders: No - PSYCHIATRIC Hx Psychophysiologic Disorder: No Hx Substance Use: No - SURGICAL HISTORY Hx Surgeries: Yes Hx Eye Surgery: Yes (cataracts - R eye) - ANESTHESIA Hx Anesthesia: No Meds Allergies/Adverse Reactions: Allergies Allergy/AdvReac Type Severity Reaction Status Date / Time No Known Allergies Allergy Unverified 06/09/17 11:51 Results - Vital Signs Recent Vital Signs: Last Vital Signs Temp 97.3 F L 06/12/17 07:40 Pulse 84 06/12/17 13:02 Resp 20 06/12/17 07:40 BP 132/74 06/12/17 09:19 Pulse Ox 95 06/12/17 13:02 - Labs Result Diagrams: 06/11/17 13:54 06/11/17 22:55 Labs: Laboratory Results - last 24 hr 06/11/17 06/11/17 06/11/17 16:20 21:09 22:55 Sodium Potassium Chloride Carbon Dioxide Anion Gap BUN Creatinine Est GFR ( Amer) Est GFR (Non-Af Amer) POC Glucose (mg/dL) 96 124 H Random Glucose Serum Osmolality 290 Calcium 06/11/17 06/12/17 06/12/17 22:55 06:24 11:41 Sodium 130 L Potassium 4.1 Chloride 100 Carbon Dioxide 24 Anion Gap 10 BUN 20 H Creatinine 0.8 Est GFR ( Amer) > 60 Est GFR (Non-Af Amer) > 60 POC Glucose (mg/dL) 105 109 Random Glucose 107 H Serum Osmolality Calcium 8.8 Assessment & Plan - Assessment and Plan (Free Text) Assessment: ISOVOLEMIC HYPONATREMIA .. MOST CONSISTANT WITH SIADH 2/2 PNEUMONIA MMP P : FLIUD RESTRICTION TO 1 L / D OK FOR D/C .. CAN BE F/U AN OUT PT - Date & Time Date: 06/12/17 Time: 13:00
== END 2017-06-12 13:51 | disposition home or self-care (01) ==
LOC: C.ER 11:22 → C.9E 13:45 → C.5S 21:42
PROVIDERS: ADMIT Internal Medicine; ATTEND Internal Medicine
DX: J18.9 Pneumonia, unspecified organism (principal); I10 Essential (primary) hypertension; E11.9 Type 2 diabetes mellitus without complications; E78.00 Pure hypercholesterolemia, unspecified; N39.0 Urinary tract infection, site not specified; E03.9 Hypothyroidism, unspecified; E87.1 Hypo-osmolality and hyponatremia; Z79.899 Other long term (current) drug therapy
CPT/HCPCS: 36415; 70450; 71045; 71046; 71250; 80048; 80053; 81001; 82948; 83880; 83930; 84484; 85025; 87040; 87086; 93005; 93306; 96360; 97116; 97162; 99285; G0378; G8978; G8979; J0456; J0696; J7040; J7050